=== PATIENT | male | born 1985 ===

== ENCOUNTER 2019-08-13 22:42 | Inpatient (IN) ==
[2019-08-13] MEDS ORDERED: Piperacillin/Tazobactam 3.375 GM VIAL ONE (23:08)
[2019-08-13 23:18] LABS: #Neutrophils 11.6 thou/uL (1.40-6.50); %Basophils 0.3 % (0.0-1.0); %Eosinophils 0.3 % (0.0-10.0); %Lymphocytes 7.1 % (21.0-51.0); %Neutrophils 85.3 % (42.0-75.0); Hemoglobin 15.3 g/dL (14.0-18.0); Mean Corpuscular HGB CONC 35.8 g/dL (32.0-36.0); Mean Corpuscular Volume 86.7 fL (78.0-98.0); Platelet Count 179 thou/uL (130-400); RBC Distribution Width 11.3 % (11.5-14.5); Red Blood Cell (RBC) Count 4.94 mill/uL (4.70-6.10); White Blood Cell (WBC) Count 13.6 thou/uL (4.8-10.8)
[2019-08-13 23:37] LABS: ALT (SGPT) 38 U/L (8-55); AST (SGOT) 18 U/L (5-34); Albumin 4.8 g/dL (3.5-5.0); Alkaline Phosphatase 77 U/L (40-110); Anion Gap 15 mmol/L (10-20); BUN (Urea Nitrogen) 11 mg/dL (8.9-20.6); Bilirubin, Total 1.6 mg/dL (0.2-1.2); Calc. Creatinine Clearance 0 mL/min (70-130); Calcium 9.4 mg/dL (7.8-10.44); Carbon Dioxide 25 mmol/L (22-29); Chloride 101 mmol/L (98-107); Estimated GFR-MDRD 81; Globulin 3.5 g/dL (2.4-3.5); Glucose 106 mg/dL (70-105); Lipase 19 U/L (8-78); Potassium 3.7 mmol/L (3.5-5.1); Protein, Total 8.3 g/dL (6.0-8.3); Sodium 137 mmol/L (136-145)
[2019-08-14] MEDS ORDERED: Acetaminophen 500 MG TAB ONE (00:03)
[2019-08-14] MEDS ORDERED: Ondansetron ODT 4 MG TAB SL PRN (00:26)
[2019-08-14] MEDS ORDERED: Ondansetron PF 4 MG/2 ML Vial IVP PRN (00:26)
[2019-08-14 00:45] VITALS: BMI 31.6
[2019-08-14] MEDS: Dextrose 5 % And 0.9 % NaCl 1,000 ML IV SCH ×2 (01:12→11:11)
[2019-08-14] MEDS: Morphine 2 MG/ML SYRINGE SLOW IVP PRN ×3 (01:20→11:24)
[2019-08-14] MEDS ORDERED: Piperacillin/Tazobactam 3.375 GM in Sodium Chloride 0.9% 100 ML IVPB SCH (06:00)
--- NOTE | 2019-08-14 08:37 | HP ---
CHIEF COMPLAINT: Right lower quadrant abdominal pain. HISTORY OF PRESENT ILLNESS: The patient is a previously healthy 34-year-old male. He is pleasant, cooperative, and speaks more or less fluent Latvian. He presented to the emergency room late last night complaining of focal right lower quadrant abdominal pain. He was evaluated by the emergency room physician with laboratory studies. He was noted to have leukocytosis with a white blood cell count of 13.6 and a left shift. His comprehensive metabolic panel was unremarkable except for a slightly elevated bilirubin level. The patient noted that he had initial diffuse abdominal pain that concentrated to the right lower quadrant only. He had some nausea, but no vomiting. He was given IV fluids, IV antibiotics, pain medicine, and admitted to my service. PAST MEDICAL HISTORY: Negative. PAST SURGICAL HISTORY: None. MEDICATIONS: None. ALLERGIES: NO KNOWN DRUG ALLERGIES. PERSONAL AND SOCIAL HISTORY: He is ( is present at bedside). He has 2 children. He moved here from [place] about 7 years ago. 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 He does not smoke. Drinks alcohol rarely. REVIEW OF SYSTEMS: Otherwise unremarkable. FAMILY HISTORY: Noncontributory. PHYSICAL EXAMINATION: VITAL SIGNS: He was apparently febrile in the emergency room with a temperature of a 101. His temperature here is 99.7. Pulse is between 84 and 100, blood pressure is within normal limits. GENERAL: He is a well-developed, well-nourished, pleasant male resting in bed. He appears comfortable, but tells me he does have right lower quadrant abdominal pain. HEAD, EYES, EARS, NOSE, AND THROAT: Unremarkable. NECK: Supple without mass or tenderness. LUNGS: Clear to auscultation throughout. CARDIAC: Regular rate and rhythm without murmur. ABDOMEN: Nondistended. He has hypoactive bowel sounds. He has no tenderness in any quadrant of his abdomen except the right lower quadrant where he has obvious focal tenderness consistent with peritonitis associated with appendicitis. EXTREMITIES: Unremarkable. ASSESSMENT: The patient with acute appendicitis. PLAN: Laparoscopic appendectomy. I have discussed the operation in detail with the patient as well as potential risks. He understands and agrees to proceed with surgery at this time. Job ID: [id number]
[2019-08-14] MEDS ORDERED: Glycopyrrolate 0.2 MG/ML 5 ML SYRINGE ONE (11:02)
[2019-08-14] MEDS ORDERED: Rocuronium Bromide 10 MG/ML (10ML VIAL) ONE (11:02)
[2019-08-14] MEDS ORDERED: Dexamethasone 20 MG/5 ML VIAL ONE (11:02)
[2019-08-14] MEDS ORDERED: Succinylcholine Chloride 20 MG/ML 10 ml SYRINGE FS ONE (11:02)
[2019-08-14] MEDS ORDERED: Ondansetron PF 4 MG/2 ML Vial ONE (11:02)
[2019-08-14] MEDS ORDERED: PROPOFOL 200 MG/20 ML VIAL ONE (11:02)
[2019-08-14] MEDS ORDERED: Ketorolac Tromethamine 30 MG/ML VIAL ONE (11:02)
[2019-08-14] MEDS ORDERED: Lidocaine 1% PF 5 ML VIAL ONE (11:02)
[2019-08-14] MEDS ORDERED: Piperacillin/Tazobactam 3.375 GM VIAL ONE (12:55)
[2019-08-14] MEDS ORDERED: Fentanyl 100 MCG/2 ML VIAL ONE (12:56)
[2019-08-14] MEDS ORDERED: Morphine 4 MG/ML VIAL ONE (12:56)
[2019-08-14] MEDS ORDERED: Sodium Chloride 0.9% 100 ML ONE (12:56)
[2019-08-14] MEDS ORDERED: Bupivacaine HCl 0.5%/Epinephrine 1:200,000/PF 30 ml Vial ONE (13:18)
[2019-08-14] MEDS ORDERED: Promethazine HCl 25 MG/ML VIAL IM PRN (15:07)
[2019-08-14] MEDS ORDERED: Ondansetron HCl/PF 4 MG/2 ML Vial IVP PRN (15:07)
[2019-08-14] MEDS ORDERED: Meperidine HCl/PF 25 MG/ML VIAL SLOW IVP PRN (15:07)
[2019-08-14] MEDS ORDERED: Morphine Sulfate 2 MG/ML SYRINGE SLOW IVP PRN (15:07)
[2019-08-14] MEDS ORDERED: PACU-Morphine 4MG/ML VIAL SLOW IVP PRN (15:07)
[2019-08-14] MEDS ORDERED: HYDROmorphone 2 MG/ML VIAL SLOW IVP PRN (15:07)
[2019-08-14] MEDS ORDERED: Promethazine HCl 25 MG/ML VIAL SLOW IVP PRN (15:07)
[2019-08-14 16:04] VITALS: BP 110/75; TEMP 98.3
--- NOTE | 2019-08-16 16:13 | OP ---
DATE OF PROCEDURE: 08/14/2019 PREOPERATIVE DIAGNOSIS: Acute appendicitis. POSTOPERATIVE DIAGNOSIS: Acute appendicitis. OPERATION PERFORMED: Laparoscopic appendectomy. ANESTHESIA: General endotracheal. INDICATIONS: The patient is a 34-year-old male, who presents with findings consistent with acute appendicitis, taken to the operating room at this time for appendectomy. DESCRIPTION OF PROCEDURE: Informed consent was obtained. The patient was taken to the operating room, where general endotracheal anesthesia was obtained with the patient in supine position. Abdomen was prepped with ChloraPrep and draped in sterile fashion. Local anesthetic was infiltrated with 0.25% Marcaine with epinephrine. A 5 mm infraumbilical incision created, through which a Veress needle was passed into the peritoneal cavity. Pneumoperitoneum was established using carbon dioxide up to pressure of 15 mmHg. A 5 mm trocar port site was established using the same incision. Laparoscopic camera was passed through this port. Under direct vision, 2 additional ports were placed, including a 5 mm left lower quadrant port and a 12 mm suprapubic port. Attention was turned to the right lower quadrant. The patient had obvious acute appendicitis with a severely inflamed, but not perforated appendix. The omentum was stripped off the appendix. Lateral adhesions to the terminal ileum and appendix were mobilized using electrocautery. The mesoappendix was taken down using electrocautery, maintaining hemostasis. The base of the appendix was skeletonized. It was noted to be inflamed and somewhat thickened at the base, and I therefore decided to divide this using a stapler. A single fire of the blue load of the Aristes stapler was fired across the base of the appendix to include a cuff of the cecum. The appendix was placed in a specimen retrieval sac and removed through the suprapubic port site. The fascia was closed with 0 Vicryl suture using a GraNee needle. The right lower quadrant and pelvis were thoroughly irrigated and all irrigant was aspirated. The staple line was inspected and found to be intact and hemostatic. All ports and instruments were removed under direct vision. Pneumoperitoneum was carefully evacuated. A 0.25% Marcaine with epinephrine was infiltrated at each port site. Skin edges approximated with 4-0 Monocryl subcuticular suture. Dermabond was placed externally. There were no complications. The patient tolerated the procedure well and was taken to recovery room in stable condition. Job ID: [id number]
--- NOTE | 2019-08-19 20:50 | PQF ---
SONY FLORES MICHAEL W MD [id number] [facility] 3319 [id number] CLINICAL DOCUMENTATION CLARIFICATION FORM: POST DISCHARGE Addendum to original discharge summary date: ____ Late entry note date: __ DATE: 08/19/19 ATTN: Mik Virgen Please exercise your independent, professional judgment in responding to the clarification form. Clinical indicators are provided on the bottom of this form for your review Please check appropriate box(s) to clarify if the following diagnosis has been ruled in or ruled out: Peritonitis [ ] Ruled in diagnosis [ ] Continue to treat [ ] Resolved [x ] Ruled out diagnosis [ ] Cannot rule out diagnosis [ ] Other diagnosis [ ] Unable to determine In addition, please specify: Present on Admission (POA): [ ] Yes [ ] No [ ] Unable to determine For continuity of documentation, please document condition throughout progress notes and discharge summary. Thank You. CLINICAL INDICATORS - SIGNS / SYMPTOMS / LABS H&P p1 08/14 Dr Pabon He presented to the emergency room late last nigh complaining of focal right lower quadrant abdominal pain H&P p1 08/14 Dr Pabon he was noted to have leukocytosis with WBC of 13.6 and left shift H&P p1 08/14 Dr Pabon He was apparently febrile in ER with temp of 101. Pulse is beween 80-100 H&P p2 08/14 Dr Pabon RLQ with obvious focal tenderness consistent with peritonitis associated with appendicitis Operative report p1 07/14 the patient had obvious acute appendicitis with severely inflamed but not perforated appendix RISK FACTORS H&P p2 08/14 - Acute Appendicitis H&P p2 08/14 - Peritonitis TREATMENTS Operative report 08/14 Laparoscopic Appendectomy DEC 15 IV Zosyn DEC 15 IV fluids (This form is maintained as a part of the permanent medical record) 2014 [employer]. All Rights Reserved [email or web address] [not provided] MTDD
--- NOTE | 2019-08-19 20:51 | PQF ---
SONY FLORES MICHAEL W MD [id number] [facility] 3319 [id number] CLINICAL DOCUMENTATION CLARIFICATION FORM: POST DISCHARGE Addendum to original discharge summary date: ____ Late entry note date: __ DATE: 08/19/19 ATTN:Mik Virgen Please exercise your independent, professional judgment in responding to the clarification form. Clinical indicators are provided on the bottom of this form for your review Please check appropriate box(s): [ x ] SIRS due to Non-infectious Appendicitis [ ] SIRS due to Infectious Appendicitis [ ] Other diagnosis [ ] Unable to determine I n addition, please specify: Present on Admission (POA): [ x] Yes [ ] No [ ] Unable to determine For continuity of documentation, please document condition throughout progress notes and discharge summary. Thank You. CLINICAL INDICATORS - SIGNS / SYMPTOMS / LABS H&P p1 08/14 Dr Pabon He presented to the emergency room late last nigh complaining of focal right lower quadrant abdominal pain H&P p1 08/14 Dr Pabon he was noted to have leukocytosis with WBC of 13.6 and left shift H&P p1 08/14 Dr Pabon He was apparently febrile in ER with temp of 101. Pulse is beween 80-100 H&P p2 08/14 Dr Pabon RLQ with obvious focal tenderness consistent with peritonitis associated with appendicitis Operative report p1 07/14 the patient had obvious acute appendicitis with severely inflamed but not perforated appendix RISK FACTORS H&P p2 08/14 - Acute Appendicitis H&P p2 08/14 - Peritonitis TREATMENTS Operative report 08/14 Laparoscopic Appendectomy DEC 15 IV Zosyn DEC 15 IV fluids (This form is maintained as a part of the permanent medical record) 2014 [employer] All Rights Reserved [email or web address] [not provided] MTDD
== END 2019-08-14 17:28 | disposition home or self-care (01) | DRG 342 ==
LOC: ERS 22:42 → SJJU 08-14 00:21
PROVIDERS: ADMIT Specialist; ATTEND Specialist
PROC: 0DTJ4ZZ Resection of Appendix, Percutaneous Endoscopic Approach (ICD-10-PCS; principal; 2019-08-14)
DX: K35.80 Unspecified acute appendicitis (principal); R65.10 Systemic inflammatory response syndrome (SIRS) of non-infectious origin without acute organ dysfunction
CPT/HCPCS: 80053; 83690; 85025; 88304; 96365; J0670; J1100; J1885; J2001; J2270; J2405; J2543; J2704; J3010; J3490